=== PATIENT | male | born 1985 | race Caucasian/White ===

== ENCOUNTER 2021-06-24 13:22 | Emergency (ER) | payer BC, OTHER ==
[2021-06-24] MEDS ORDERED: Sodium Chloride 0.9% 10 ML Syringe FLUSH PRN (13:36)
[2021-06-24 15:19] LABS: CORONAVIRUS COVID-19 NAA NEGATIVE (NEGATIVE)
== END 2021-06-24 16:18 | disposition home or self-care (01) ==
LOC: JD.ED 13:22
DX: R07.89 Other chest pain (principal); Z72.0 Tobacco use; Z20.822 Contact with and (suspected) exposure to COVID-19
CPT/HCPCS: 0241U; 36415; 71045; 80053; 84484; 85025; 85379; 93005; 99285

== ENCOUNTER 2021-07-25 02:37 | Emergency (ER) | payer OTHER | END 2021-07-25 04:54 | disposition home or self-care (01) | LOC: JD.ED 02:37 | DX: J40 Bronchitis, not specified as acute or chronic (principal); Z86.16 Personal history of COVID-19; Z72.0 Tobacco use | CPT/HCPCS: 36415; 71046; 71046-26; 80053; 84484; 85025; 85379; 85610; 85652; 85730; 86140; 93005; 93010; 99284; 99285-25 ==